=== PATIENT | female | born 1945 | race Caucasian/White ===

== ENCOUNTER 2018-10-16 10:45 | Inpatient (IN) | payer OTHER ==
[2018-10-16 12:24] VITALS: BMI 37.4
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
[2018-10-16] MEDS ORDERED: ACETAMINOPHEN 325 MG TABLET (FP) PO PRN ×2 (13:38)
[2018-10-16] MEDS ORDERED: chlordiazePOXIDE HCL 10 MG CAPSULE PO PRN (13:38)
[2018-10-16] MEDS ORDERED: MELATONIN 5 MG TABLETS PO PRN (13:38)
[2018-10-16] MEDS ORDERED: MAG HYDROX/AL HYDROX/SIMETH 30 ML UNIT-DOSE CUP PO PRN (13:38)
[2018-10-16] MEDS ORDERED: BISMUTH SUBSALICYLATE 262 MG/15 ML BTL PO PRN (13:38)
[2018-10-16] MEDS ORDERED: IBUPROFEN 400 MG TABLET (FP) PO PRN (13:38)
[2018-10-16] MEDS ORDERED: MAGNESIUM HYDROX 2400MG/30ML ORAL SUSPENSION 30 ML CUP PO PRN (13:38)
[2018-10-16] MEDS ORDERED: hydrOXYzine PAMOATE 25 MG CAPSULE (FP) PO PRN (13:38)
[2018-10-16] MEDS ORDERED: MENTHOL/PHENOL 1 EACH UD MM PRN (13:38)
[2018-10-16] MEDS ORDERED: MAGNESIUM CITRATE 300 ML BOTTLE PO PRN (13:38)
[2018-10-16] MEDS: ASPIRIN 81 MG CHEWABLE TABLETS PO SCH (15:03)
[2018-10-16] MEDS ORDERED: RANITIDINE HCL 150 MG TABLET (FP) PO ONE (17:15)
[2018-10-16] MEDS ORDERED: chlordiazePOXIDE HCL 25 MG CAPSULE PO PRN (17:25)
[2018-10-16] MEDS ORDERED: chlordiazePOXIDE HCL 25 MG CAPSULE PO ONE (17:45)
[2018-10-16 17:46] LABS: HEMATOCRIT 40.8 % (32.4-45.2); HEMOGLOBIN 13.5 GM/dL (10.7-15.3); MCH 30.3 pg (25.7-33.7); MEAN CELL VOLUME 91.8 fl (80-96); MEAN PLT VOLUME 9.6 fl (7.5-11.1); PLATELET COUNT 255 K/MM3 (134-434); RBC 4.44 M/mm3 (3.60-5.2); WHITE BLOOD COUNT 8.8 K/mm3 (4.0-10.0)
[2018-10-16] MEDS: chlordiazePOXIDE HCL 25 MG CAPSULE PO SCH ×2 (17:47→22:54)
[2018-10-16 18:06] LABS: ALBUMIN 3.9 g/dl (3.4-5.0); BILIRUBIN,TOTAL 0.3 mg/dL (0.2-1); CALCIUM 10.1 mg/dL (8.5-10.1); CREATININE 0.7 mg/dL (0.55-1.3); POTASSIUM 3.9 mmol/L (3.5-5.1); TOT PROT 7.8 g/dl (6.4-8.2)
[2018-10-16] MEDS ORDERED: chlordiazePOXIDE HCL 25 MG CAPSULE PO SCH (21:00)
[2018-10-16] MEDS ORDERED: traZODone HCL 50 MG TABLET (FP) PO SCH (22:00)
[2018-10-16] MEDS: RANITIDINE HCL 150 MG TABLET (FP) PO SCH (22:54)
[2018-10-16] MEDS: ATORVASTATIN CA 40 MG TABLET (FP) PO SCH (22:54)
[2018-10-16] MEDS: THIAMINE HCL 100 MG TABLET (FP) PO SCH (22:54)
[2018-10-16] MEDS: SILVER SULFADIAZINE 1% TOP CREAM 50 GM JAR TP SCH (22:56)
[2018-10-16] MEDS: NICOTINE POLACRILEX 2 MG GUM BUC PRN (22:59)
[2018-10-17] MEDS: chlordiazePOXIDE HCL 25 MG CAPSULE PO SCH ×4 (05:17→23:02)
[2018-10-17] MEDS: PRENATAL VITAMINS W/ FOLIC ACID TABLET (FP) PO SCH (10:34)
[2018-10-17] MEDS: ASPIRIN 81 MG CHEWABLE TABLETS PO SCH (10:34)
[2018-10-17] MEDS: RANITIDINE HCL 150 MG TABLET (FP) PO SCH ×2 (10:34→23:04)
[2018-10-17] MEDS: SILVER SULFADIAZINE 1% TOP CREAM 50 GM JAR TP SCH ×2 (10:35→23:01)
[2018-10-17] MEDS: NICOTINE POLACRILEX 2 MG GUM BUC PRN (13:20)
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
[2018-10-17] MEDS ORDERED: PATIENT'S OWN MEDICATION (NON-FORMULARY) (Bupropion Hcl [Bupropion Hcl Sr] 150 MG) PO SCH (14:00)
[2018-10-17] MEDS ORDERED: SERTRALINE HCL 200 MG PO SCH (14:00)
--- NOTE | 2018-10-17 14:03 | PN ---
S CIWA - CIWA Score Nausea/Vomitin-No Nausea/No Vomiting Muscle Tremors: 3 Anxiety: 3 Agitation: 4-Moderately Restless Paroxysmal Sweats: 3 Orientation: 0-Oriented Tacttile Disturbances: 0-None Auditory Disturbances: 0-None Visual Disturbances: 0-None Headache: 1-Very Mild CIWA-Ar Total Score: 14 BHS Progress Note (SOAP) Subjective: sweats shakes interrupted sleep body aches irritable agitation Objective: 10/17/18 14:02 Vital Signs Temperature 97.5 F L 10/17/18 10:09 Pulse Rate 67 10/17/18 10:09 Respiratory Rate 18 10/17/18 10:09 Blood Pressure 112/51 L 10/17/18 10:09 O2 Sat by Pulse Oximetry (%) Laboratory Tests 10/16/18 10/16/18 10/16/18 14:15 14:15 14:15 WBC 8.8 RBC 4.44 Hgb 13.5 Hct 40.8 MCV 91.8 MCH 30.3 MCHC 33.0 RDW 15.0 Plt Count 255 MPV 9.6 Sodium 139 Potassium 3.9 Chloride 103 Carbon Dioxide 30 Anion Gap 6 L BUN 12 Creatinine 0.7 Est GFR (CKD-EPI)AfAm 101.74 Est GFR (CKD-EPI)NonAf 87.78 Random Glucose 101 Calcium 10.1 Total Bilirubin 0.3 AST 20 ALT 23 Alkaline Phosphatase 141 H Total Protein 7.8 Albumin 3.9 RPR Titer Nonreactive aaox3 ambulating no acute distress Assessment: 10/17/18 14:02 withdrawal sx Plan: continue detox increase fluids
[2018-10-17] MEDS: SERTRALINE HCL 50 MG TABLET (FP) PO SCH (15:35)
[2018-10-17] MEDS ORDERED: chlordiazePOXIDE 5 MG CAPSULE PO SCH (21:00)
[2018-10-17] MEDS ORDERED: traZODone HCL 100 MG TABLET (FP) PO SCH (22:00)
[2018-10-17] MEDS: THIAMINE HCL 100 MG TABLET (FP) PO SCH (23:02)
[2018-10-17] MEDS: ATORVASTATIN CA 40 MG TABLET (FP) PO SCH (23:02)
[2018-10-17] MEDS: traZODone HCL 100 MG TABLET (FP) PO SCH (23:02)
[2018-10-18] MEDS: chlordiazePOXIDE HCL 25 MG CAPSULE PO SCH ×2 (06:37→10:17)
[2018-10-18] MEDS: NICOTINE POLACRILEX 2 MG GUM BUC PRN ×2 (06:43→16:25)
[2018-10-18] MEDS: SERTRALINE HCL 50 MG TABLET (FP) PO SCH (10:15)
[2018-10-18] MEDS: PRENATAL VITAMINS W/ FOLIC ACID TABLET (FP) PO SCH (10:15)
[2018-10-18] MEDS: RANITIDINE HCL 150 MG TABLET (FP) PO SCH ×2 (10:15→23:14)
[2018-10-18] MEDS: ASPIRIN 81 MG CHEWABLE TABLETS PO SCH (10:15)
[2018-10-18] MEDS: SILVER SULFADIAZINE 1% TOP CREAM 50 GM JAR TP SCH ×2 (10:17→23:14)
--- NOTE | 2018-10-18 12:45 | PN ---
S CIWA - CIWA Score Nausea/Vomitin-No Nausea/No Vomiting Muscle Tremors: 2 Anxiety: 2 Agitation: 2 Paroxysmal Sweats: 3 Orientation: 0-Oriented Tacttile Disturbances: 0-None Auditory Disturbances: 0-None Visual Disturbances: 0-None Headache: 2-Mild CIWA-Ar Total Score: 11 BHS Progress Note (SOAP) Subjective: c/o sweats, tremor, interrupted sleep, body aches, anxiety, and agitation. Objective: 10/18/18 12:44 Vital Signs 10/18/18 10/18/18 05:00 10:02 Temperature 97.7 F 97.0 F L Pulse Rate 52 L 52 L Respiratory 18 16 Rate Blood Pressure 131/61 100/56 L Assessment: 10/18/18 12:44 AOX3, in no distress Withdrawal symptoms. Plan: continue detox increase fluids.
[2018-10-18] MEDS: chlordiazePOXIDE HCL 10 MG CAPSULE PO SCH ×2 (16:22→23:36)
[2018-10-18] MEDS ORDERED: chlordiazePOXIDE HCL 10 MG CAPSULE PO PRN ×2 (17:00→21:00)
[2018-10-18] MEDS ORDERED: chlordiazePOXIDE HCL 25 MG CAPSULE PO ONE (18:55)
[2018-10-18] MEDS ORDERED: LOPERAMIDE HCL 2 MG CAPSULE PO PRN (18:59)
--- NOTE | 2018-10-18 18:59 | PN ---
[facility] Progress Note Note: withdrawal symptom tremor diarrhea Vital Signs Temperature 97.6 F 10/18/18 18:23 Pulse Rate 52 L 10/18/18 18:23 Respiratory Rate 18 10/18/18 18:23 Blood Pressure 121/62 10/18/18 18:23 O2 Sat by Pulse Oximetry (%) will give librium 25 mgs po now immodium for diarrhea close mnitoring
[2018-10-18] MEDS ORDERED: chlordiazePOXIDE HCL 10 MG CAPSULE PO SCH (21:00)
[2018-10-18] MEDS: THIAMINE HCL 100 MG TABLET (FP) PO SCH (23:14)
[2018-10-18] MEDS: ATORVASTATIN CA 40 MG TABLET (FP) PO SCH (23:14)
[2018-10-18] MEDS: traZODone HCL 100 MG TABLET (FP) PO SCH (23:14)
--- NOTE | 2018-10-19 02:56 | PN ---
[facility] Progress Note (SOAP) Subjective: States rolled out of bed while trying to get up to go to bathroom. Denies hitting head. Denies any body pain. Patient states is fine and does not want to go to the Emergency Room. Denies nausea or vomiting. Objective: Alert and oriented. FROM extremities. FWB. Gait unsteady No erythema, lesions, bumps or bruising on skin. Abd soft, non-tender. Loose, brown BM's w/ flatulence. Vital Signs 10/18/18 10/19/18 10/19/18 22:14 00:30 02:40 Temperature 96.2 F L 97.2 F L Pulse Rate 75 65 Respiratory 16 18 20 Rate Blood Pressure 119/75 129/55 L Laboratory Last Values WBC 8.8 K/mm3 (4.0-10.0) 10/16/18 14:15 RBC 4.44 M/mm3 (3.60-5.2) 10/16/18 14:15 Hgb 13.5 GM/dL (10.7-15.3) 10/16/18 14:15 Hct 40.8 % (32.4-45.2) 10/16/18 14:15 MCV 91.8 fl (80-96) 10/16/18 14:15 MCH 30.3 pg (25.7-33.7) 10/16/18 14:15 MCHC 33.0 g/dl (32.0-36.0) 10/16/18 14:15 RDW 15.0 % (11.6-15.6) 10/16/18 14:15 Plt Count 255 K/MM3 (134-434) 10/16/18 14:15 MPV 9.6 fl (7.5-11.1) 10/16/18 14:15 Sodium 139 mmol/L (136-145) 10/16/18 14:15 Potassium 3.9 mmol/L (3.5-5.1) 10/16/18 14:15 Chloride 103 mmol/L (98-107) 10/16/18 14:15 Carbon Dioxide 30 mmol/L (21-32) 10/16/18 14:15 Anion Gap 6 MMOL/L (8-16) L 10/16/18 14:15 BUN 12 mg/dL (7-18) 10/16/18 14:15 Creatinine 0.7 mg/dL (0.55-1.3) 10/16/18 14:15 Est GFR (CKD-EPI)AfAm 101.74 10/16/18 14:15 Est GFR (CKD-EPI)NonAf 87.78 10/16/18 14:15 Random Glucose 101 mg/dL (74-106) 10/16/18 14:15 Calcium 10.1 mg/dL (8.5-10.1) 10/16/18 14:15 Total Bilirubin 0.3 mg/dL (0.2-1) 10/16/18 14:15 AST 20 U/L (15-37) 10/16/18 14:15 ALT 23 U/L (13-61) 10/16/18 14:15 Alkaline Phosphatase 141 U/L (45-117) H 10/16/18 14:15 Total Protein 7.8 g/dl (6.4-8.2) 10/16/18 14:15 Albumin 3.9 g/dl (3.4-5.0) 10/16/18 14:15 POC Urine HCG, Qual Negative 10/16/18 14:29 RPR Titer Nonreactive (NONREACTIVE) 10/16/18 14:15 Labs reviewed. Assessment: Fall Diarrhea. Alcohol withdrawal Plan: Post -Fall Protocol Vistaril and Trazodone discontinued. Re-evaluate medications. Referral to Psych for re-eval of Trazodone. Decrease Librium dose.
[2018-10-19] MEDS ORDERED: chlordiazePOXIDE HCL 10 MG CAPSULE PO SCH ×3 (03:18→17:00)
[2018-10-19] MEDS ORDERED: IBUPROFEN 400 MG TABLET (FP) PO PRN (03:18)
[2018-10-19] MEDS ORDERED: chlordiazePOXIDE 5 MG CAPSULE PO SCH (06:41)
[2018-10-19] MEDS ORDERED: LOPERAMIDE HCL 2 MG CAPSULE PO PRN (07:00)
--- NOTE | 2018-10-19 14:33 | PN ---
S CIWA - CIWA Score Nausea/Vomitin-No Nausea/No Vomiting Muscle Tremors: 2 Anxiety: 2 Agitation: 2 Paroxysmal Sweats: 2 Orientation: 0-Oriented Tacttile Disturbances: 0-None Auditory Disturbances: 0-None Visual Disturbances: 0-None Headache: 0-None Present CIWA-Ar Total Score: 8 BHS Progress Note (SOAP) Subjective: Anxious, sweating. Patient reported she fell in the bathroom after using the toilet and trying to get up from the toilet. As per patient, she fell on her buttocks and hit the back of her head. She c/o pain at back of head that hit the toilet. As per staff, patient fell previously last night and denied hitting her head at that time. Objective: 10/19/18 14:30 Last Vital Signs Temp Pulse Resp BP Pulse Ox 97.7 F 63 18 124/68 10/19/18 11:08 10/19/18 11:08 10/19/18 11:08 10/19/18 11:08 Head: no visible injury/trauma noted to head, mild tenderness to mid parietal area on palpation Laboratory Tests 10/16/18 10/16/18 10/16/18 14:15 14:15 14:15 WBC 8.8 RBC 4.44 Hgb 13.5 Hct 40.8 MCV 91.8 MCH 30.3 MCHC 33.0 RDW 15.0 Plt Count 255 MPV 9.6 Sodium 139 Potassium 3.9 Chloride 103 Carbon Dioxide 30 Anion Gap 6 L BUN 12 Creatinine 0.7 Est GFR (CKD-EPI)AfAm 101.74 Est GFR (CKD-EPI)NonAf 87.78 Random Glucose 101 Calcium 10.1 Total Bilirubin 0.3 AST 20 ALT 23 Alkaline Phosphatase 141 H Total Protein 7.8 Albumin 3.9 POC Urine HCG, Qual RPR Titer Nonreactive 10/16/18 14:29 WBC RBC Hgb Hct MCV MCH MCHC RDW Plt Count MPV Sodium Potassium Chloride Carbon Dioxide Anion Gap BUN Creatinine Est GFR (CKD-EPI)AfAm Est GFR (CKD-EPI)NonAf Random Glucose Calcium Total Bilirubin AST ALT Alkaline Phosphatase Total Protein Albumin POC Urine HCG, Qual Negative RPR Titer Labs reviewed Assessment: 10/19/18 14:31 Withdrawal symptoms Plan: Continue detox Encouraged PO water hydration Patient transferred to [facility] for further evaluation Patient will be accepted by Dr. Oconnor who took report over the phone from pattern chart writer at ext [phone] Consider UA with urine C&S after patient returns from ER (if not done in ER) to rule out UTI
[2018-10-19] MEDS: RANITIDINE HCL 150 MG TABLET (FP) PO SCH ×2 (15:40→22:29)
[2018-10-19] MEDS: ASPIRIN 81 MG CHEWABLE TABLETS PO SCH (15:40)
[2018-10-19] MEDS: SILVER SULFADIAZINE 1% TOP CREAM 50 GM JAR TP SCH ×2 (15:40→22:52)
[2018-10-19] MEDS: PRENATAL VITAMINS W/ FOLIC ACID TABLET (FP) PO SCH (15:40)
[2018-10-19] MEDS: SERTRALINE HCL 50 MG TABLET (FP) PO SCH (15:41)
--- NOTE | 2018-10-19 19:44 | PN ---
S Progress Note Note: patient medically clear to return from er to C to continue detox alert no complaint bp 132/55.p89,r28,t97.2 to continue detox,head injury fl protocol 1,close monitoring
[2018-10-19] MEDS: THIAMINE HCL 100 MG TABLET (FP) PO SCH (22:29)
[2018-10-19] MEDS: ATORVASTATIN CA 40 MG TABLET (FP) PO SCH (22:29)
[2018-10-20] MEDS: chlordiazePOXIDE 5 MG CAPSULE PO SCH ×2 (06:33→17:51)
[2018-10-20] MEDS: SERTRALINE HCL 50 MG TABLET (FP) PO SCH (10:28)
[2018-10-20] MEDS: PRENATAL VITAMINS W/ FOLIC ACID TABLET (FP) PO SCH (10:28)
[2018-10-20] MEDS: RANITIDINE HCL 150 MG TABLET (FP) PO SCH ×2 (10:29→22:47)
[2018-10-20] MEDS: SILVER SULFADIAZINE 1% TOP CREAM 50 GM JAR TP SCH ×2 (10:29→22:47)
[2018-10-20] MEDS: ASPIRIN 81 MG CHEWABLE TABLETS PO SCH (10:29)
--- NOTE | 2018-10-20 15:47 | PN ---
S CIWA - CIWA Score Nausea/Vomitin-No Nausea/No Vomiting Muscle Tremors: 2 Anxiety: 4-Mod. Anxious/Guarded Agitation: 3 Paroxysmal Sweats: 3 Orientation: 0-Oriented Tacttile Disturbances: 0-None Auditory Disturbances: 0-None Visual Disturbances: 0-None Headache: 0-None Present CIWA-Ar Total Score: 12 BHS Progress Note (SOAP) Subjective: Anxious, Restless, Tremors (Mild). Objective: PATIENT A & O X 3, OBSERVED AMBULATING ON UNIT UNASSISTED. IN NO ACUTE DISTRESS. 10/20/18 15:45 Vital Signs Temperature 97.2 F L 10/20/18 13:35 Pulse Rate 52 L 10/20/18 13:35 Respiratory Rate 18 10/20/18 13:35 Blood Pressure 140/58 L 10/20/18 13:35 O2 Sat by Pulse Oximetry (%) Laboratory Tests 10/16/18 10/16/18 10/16/18 14:15 14:15 14:15 WBC 8.8 RBC 4.44 Hgb 13.5 Hct 40.8 MCV 91.8 MCH 30.3 MCHC 33.0 RDW 15.0 Plt Count 255 MPV 9.6 Sodium 139 Potassium 3.9 Chloride 103 Carbon Dioxide 30 Anion Gap 6 L BUN 12 Creatinine 0.7 Est GFR (CKD-EPI)AfAm 101.74 Est GFR (CKD-EPI)NonAf 87.78 Random Glucose 101 Calcium 10.1 Total Bilirubin 0.3 AST 20 ALT 23 Alkaline Phosphatase 141 H Total Protein 7.8 Albumin 3.9 POC Urine HCG, Qual RPR Titer Nonreactive 10/16/18 14:29 WBC RBC Hgb Hct MCV MCH MCHC RDW Plt Count MPV Sodium Potassium Chloride Carbon Dioxide Anion Gap BUN Creatinine Est GFR (CKD-EPI)AfAm Est GFR (CKD-EPI)NonAf Random Glucose Calcium Total Bilirubin AST ALT Alkaline Phosphatase Total Protein Albumin POC Urine HCG, Qual Negative RPR Titer LABS NOTED. Assessment: 10/20/18 15:46 WITHDRAWAL SYMPTOMS. Plan: CONTINUE DETOX. PATIENT SCHEDULED FOR D/C TOMORROW.
[2018-10-20] MEDS: ATORVASTATIN CA 40 MG TABLET (FP) PO SCH (22:46)
[2018-10-20] MEDS: THIAMINE HCL 100 MG TABLET (FP) PO SCH (22:47)
--- NOTE | 2018-10-21 08:52 | DS ---
[facility] Detox Discharge Summary Admission Date: 10/16/18 Discharge Date: 10/21/18 - History Present History: Alcohol Dependence - Physical Exam Results Vital Signs: Vital Signs Temperature 97.7 F 10/21/18 06:00 Pulse Rate 63 10/21/18 06:00 Respiratory Rate 18 10/21/18 06:00 Blood Pressure 118/63 10/21/18 06:00 O2 Sat by Pulse Oximetry (%) - Treatment Hospital Course: Detox Protocol Followed, Detoxed Safely, Responded well, Discharged Condition Good, Rehab Referral Accepted - Medication Discharge Medications: Ambulatory Orders Aspirin [ASA -] 81 mg PO DAILY 10/16/18 Atorvastatin Ca [Lipitor] 40 mg PO HS 10/16/18 Bupropion HCl [Bupropion HCl Sr] 150 mg PO DAILY 10/16/18 Ranitidine [Zantac -] 150 mg PO BID 10/16/18 traZODone HCL [Trazodone HCl] 50 - 100 mg PO DAILY 10/16/18 - Diagnosis (1) Alcohol dependence with uncomplicated withdrawal Current Visit: Yes Status: Acute (2) Alcohol-induced mood disorder Current Visit: Yes Status: Acute (3) Alcohol-induced sleep disorder Current Visit: Yes Status: Acute (4) Angina pectoris Current Visit: Yes Status: Chronic (5) MDD (major depressive disorder), recurrent episode, moderate Current Visit: Yes Status: Chronic (6) Fall Current Visit: No Status: Acute (7) Head trauma Current Visit: No Status: Resolved - AMA Did Patient Leave Against Medical Advice: No ([facility] inpatient rehab)
[2018-10-21 09:43] VITALS: BP 111/54; PULSE 56; TEMP 98.2
[2018-10-21] MEDS: PRENATAL VITAMINS W/ FOLIC ACID TABLET (FP) PO SCH (10:25)
[2018-10-21] MEDS: SERTRALINE HCL 50 MG TABLET (FP) PO SCH (10:25)
[2018-10-21] MEDS: RANITIDINE HCL 150 MG TABLET (FP) PO SCH (10:26)
[2018-10-21] MEDS: ASPIRIN 81 MG CHEWABLE TABLETS PO SCH (10:26)
[2018-10-21] MEDS: SILVER SULFADIAZINE 1% TOP CREAM 50 GM JAR TP SCH (10:26)
--- NOTE | 2018-10-21 12:14 | EKG ---
Test Reason : Blood Pressure : / mmHG Vent. Rate : 060 BPM Atrial Rate : 060 BPM P-R Int : 146 ms QRS Dur : 082 ms QT Int : 434 ms P-R-T Axes : 059 -15 016 degrees QTc Int : 434 ms NORMAL SINUS RHYTHM NORMAL ECG WHEN COMPARED WITH ECG OF 19-OCT-2018 11:09, QT HAS SHORTENED Confirmed by MD Miguel, Elfego ([id number]) on 10/21/2018 12:14:23 PM Referred By: Confirmed By:Elfego Rivera MD
== END 2018-10-21 12:40 | disposition home or self-care (01) | DRG 897 ==
LOC: YASAS 10:45 → Y6N 14:06
PROVIDERS: ADMIT Surgery; ATTEND Surgery
PROC: HZ2ZZZZ Detoxification Services for Substance Abuse Treatment (ICD-10-PCS; principal; 2018-10-16)
DX: F10.230 Alcohol dependence with withdrawal, uncomplicated (principal); F33.1 Major depressive disorder, recurrent, moderate; F10.24 Alcohol dependence with alcohol-induced mood disorder; F10.282 Alcohol dependence with alcohol-induced sleep disorder; I20.9 Angina pectoris, unspecified; R19.7 Diarrhea, unspecified; R25.1 Tremor, unspecified; E78.5 Hyperlipidemia, unspecified; S09.90XA Unspecified injury of head, initial encounter; W06.XXXA Fall from bed, initial encounter; Y93.89 Activity, other specified; Y92.230 Patient room in hospital as the place of occurrence of the external cause; Z87.891 Personal history of nicotine dependence
CPT/HCPCS: 36415; 70450-TC; 71045-TC-FY; 71046-TC-FY; 72125-TC; 80053; 80307; 81025; 85027; 86593; 93005; 93010; 99281-25; G0480

== ENCOUNTER 2018-10-19 10:38 | Emergency (ER) | payer OTHER ==
--- NOTE | 2018-10-19 11:11 | PDOC ---
History of Present Illness - General Chief Complaint: Pain Stated Complaint: SICK Time Seen by Provider: 10/19/18 11:09 Past History - Past Medical History Allergies/Adverse Reactions: Allergies Allergy/AdvReac Type Severity Reaction Status Date / Time No Known Allergies Allergy Verified 10/19/18 11:15 Home Medications: Ambulatory Orders Aspirin [ASA -] 81 mg PO DAILY 10/16/18 Atorvastatin Ca [Lipitor] 40 mg PO HS 10/16/18 Bupropion HCl [Bupropion HCl Sr] 150 mg PO DAILY 10/16/18 Ranitidine [Zantac -] 150 mg PO BID 10/16/18 traZODone HCL [Trazodone HCl] 50 - 100 mg PO DAILY 10/16/18 Acetaminophen [Tylenol] 650 mg PO PRN 10/19/18 Chlordiazepoxide [Librium -] 5 mg PO BID 10/19/18 Chlordiazepoxide [Librium -] 5 mg PO QID 10/19/18 Chlordiazepoxide [Librium -] 10 mg PO PRN 10/19/18 Chlordiazepoxide [Librium -] 10 mg PO Q6HPO 10/19/18 Chlordiazepoxide [Librium -] 25 mg PO PRN 10/19/18 Ibuprofen [Motrin -] 400 mg PO PRN 10/19/18 Imodium A-D 4 mg PO PRN 10/19/18 Magnesium Citrate [Citroma -] 300 ml PO PRN 10/19/18 Melatonin 5 mg PO PRN 10/19/18 Menthol/Phenol [Cepastat Lozenge -] 1 each MM PRN 10/19/18 Nicotine Polacrilex [Nicotine Gum] 2 mg BC PRN 10/19/18 Pnv No.95/Ferrous Fum/Folic AC [ Vitamin Tablet] 1 each PO DAILY Sertraline HCl [Zoloft] 200 mg PO DAILY 10/19/18 Silver Sulfadiazine [Silvadene] 1 applic TP BID 10/19/18 Thiamine HCl [Vitamin B1] 100 mg PO HS 10/19/18 Asthma: No Cardiac Disorders: No COPD: No Diabetes: No GI Disorders: No Disorders: No HTN: No Kidney Stones: No Seizures: No - Surgical History Abdominal Surgery: No Appendectomy: No Cardiac Surgery: No Cholecystectomy: No Lung Surgery: No Neurologic Surgery: No Orthopedic Surgery: Yes (R ankle fx) - Suicide/Smoking/Psychosocial Hx Smoking History: Former smoker Have you smoked in the past 12 months: No Hx Substance Use Treatment: Yes *Physical Exam - Physical Exam Comments: 10/19/18 11:47 + c spine tenderness to palpation + chest wall tenderness to palpation no spinal pain or step offs. *DC/Admit/Observation/Transfer Diagnosis at time of Disposition: Fall, Head trauma - Discharge Dispostion Disposition: HOME Condition at time of disposition: Stable Decision to Admit order: No - Referrals - Patient Instructions Printed Discharge Instructions: DI for Closed Head Injury Additional Instructions: You were seen in the ED for complaints of head injury after a fall. In the ED you were evaluated with imaging. Your results were unremarkable. There does not appear to be an acute need for immediate hospitalization. You are advised to follow up with your Primary Care Physician within 1 week. Return to the ED immediately if you experience headache, neck pain, nausea, vomiting, chest pain, shortness of breath, fever, pain to arms or legs or loss of consciousness. - Post Discharge Activity
[2018-10-19 11:15] VITALS: TEMP 97.4; BMI 33.8
[2018-10-19] MEDS ORDERED: chlordiazePOXIDE 5 MG CAPSULE ONE ×2 (11:54→17:36)
[2018-10-19] MEDS ORDERED: chlordiazePOXIDE 5 MG CAPSULE PO SCH (12:00)
--- NOTE | 2018-10-19 12:07 | PDOC ---
Attending Attestation - Resident Resident Name: Jess Michelle - ED Attending Attestation I have performed the following: I have examined & evaluated the patient, The case was reviewed & discussed with the resident, I agree w/resident's findings & plan, Exceptions are as noted - HPI HPI: 10/19/18 12:07 72y hx of etoh abuse, anxiety, depression presents sp fall from [facility]. The patient states she was doing ok this morning, was on the toilet bowl and slid off the toilet, striking her head onthe toilet - no associated n/v, vision changes, severe headache, back pain, numbness/tinglingweakness, abd pain, cp, sob, extremity pain. No LOC. No f/c, cough, melena. Pt notes having some loose stool recently without blood or black stool. Pt sent here for evaluation of head injury per protocol at [facility]. GENERAL: The patient is awake, alert, and fully oriented, Nontoxic - in no acute distress. HEAD: Normocephalic, atraumatic without any stepoffs, echymosis. neg battles sign or racoon eyes, no focal ttp. EYES: extraocular movements intact, sclera anicteric, conjunctiva clear. ENT: Normal voice, Moist mucous membranes. NECK: Normal range of motion, supple, no focal bony ttp on cervica/thoracic/ lumbar spine LUNGS: Breath sounds equal, clear to auscultation bilaterally. No wheezes, no rhonchi, no rales. HEART: slightly bradycardic, normal S1 and S2 without murmur, rub or gallop. ABDOMEN: Soft, nontender, No guarding, no rebound. . No CVA tenderness EXTREMITIES: Normal range of motion, no edema. normal movement of each extremity without pain or ttp NEUROLOGICAL: No facial assymetry, Normal speech, moving all 4 extremities spontaneously and symmetrically without PSYCH: Normal mood, normal affect. SKIN: Warm, Dry, normal turgor, area of erythema w/induration/warmth on the lateral aspect of R humreus ct head to r/o acute hemorrhage blood work to ro anemia, metabolic deragnment - Physicial Exam PE: 10/19/18 16:51 see above - Medical Decision Making 10/19/18 16:50 ct head/cspine negative cxr neg pt feeling improved will back to [facility] for further detox I discussed the physical exam findings, ancillary test results and final diagnoses with the patient. I answered all of the patient's questions. The patient was satisfied with the care received and felt comfortable with the discharge plan and treatment plan. The patient will call their primary care physician within 24 hours to arrange follow-up and will return to the Emergency Department with any new, persistent or worsening symptoms. Heart Score/ECG Review - ECG Impressions Comment:: 10/19/18 12:34 Twelve-lead EKG was performed and reviewed by me. There is normal sinus rhythm with a rate of [address]-T wave changes suggestive of acute ischemia Normal R wave progression
[2018-10-19 15:16] LABS: COCAINE, UR NEGATIVE ng/ml (CUTOFF=300); METHADONE, UR NEGATIVE ng/ml (CUTOFF=300); OPIATES, URI NEGATIVE ng/ml (CUTOFF=300); PHENCYCLIDINE,URINE NEGATIVE ng/ml (CUTOFF=25); URINE AMPHETAMINES NEGATIVE ng/ml (CUTOFF=500); URINE BARBITURATES NEGATIVE ng/ml (CUTOFF=200)
[2018-10-19 15:19] LABS: URINE BENZODIAZEPINES POSITIVE ng/ml (CUTOFF=200)
[2018-10-19 15:56] VITALS: PULSE 52
[2018-10-19] MEDS ORDERED: chlordiazePOXIDE 5 MG CAPSULE PO ONE (17:30)
[2018-10-19 17:49] VITALS: BP 133/63
--- NOTE | 2018-10-20 09:56 | EKG ---
Test Reason : Blood Pressure : / mmHG Vent. Rate : 066 BPM Atrial Rate : 066 BPM P-R Int : 146 ms QRS Dur : 084 ms QT Int : 464 ms P-R-T Axes : 040 -05 022 degrees QTc Int : 486 ms SINUS RHYTHM WITH MARKED SINUS ARRHYTHMIA OTHERWISE NORMAL ECG NO PREVIOUS ECGS AVAILABLE Confirmed by MAURISIO TOSCANO, BRITTANIE ([id number]) on 10/20/2018 9:56:06 AM Referred By: Confirmed By:BRITTANIE FORDE MD
== END 2018-10-19 17:55 | disposition home or self-care (01) ==
LOC: JER 10:38
DX: S09.90XA Unspecified injury of head, initial encounter (principal); W18.11XA Fall from or off toilet without subsequent striking against object, initial encounter; Y93.89 Activity, other specified; Y92.238 Other place in hospital as the place of occurrence of the external cause; Z87.891 Personal history of nicotine dependence
CPT/HCPCS: 36415; 70450-TC; 71045-TC-FY; 72125-TC; 80307; 93005; 93010; 99281-25; G0480